=== PATIENT | male | born 1930 | race Caucasian/White ===

== ENCOUNTER 2016-06-29 08:19 | Emergency (ER) | payer MEDICARE, OTHER ==
[~2016-06-29] VITALS: Ht 167.6 cm; Wt 80.0 kg
[~2016-06-29 08:19] MED LIST: ASPI325T32 PO; ATOR40TA68 PO; CARV12.579 PO; CLOP75TA27 PO; ERGO500037 PO; ISOS30TA PO; MECL-77 PO; OMEP20CA16 PO; TAMS0.4C2 PO; VALS40TA2 PO
[2016-06-29 08:29] VITALS: Ht 167.6 cm; Wt 80.0 kg
[2016-06-29] MEDS ORDERED: ASPI-664 PO (09:23)
[2016-06-29] MEDS ORDERED: VALS160T20 PO (09:24)
[2016-06-29] MEDS ORDERED: BENA10TA48 PO (09:25)
[2016-06-29] MEDS ORDERED: AMOX1TAB10 PO (09:26)
[2016-06-29] MEDS ORDERED: ASPIRIN 325 MG TAB PO STA (09:43)
[2016-06-29] MEDS ORDERED: LIDOCAINE/MYLANTA 40 ML BTL PO ONE (10:00)
--- NOTE | 2016-06-29 10:16 | RADRPT ---
PROCEDURE: XR Chest. CLINICAL INDICATION: Chest pain. TECHNIQUE: Single frontal chest x-ray. COMPARISON: Exam dated 04/27/2013. FINDINGS: There are atherosclerotic changes of the aorta. The cardiomediastinal silhouette is within normal l imits. The lungs are clear without focal consolidation, effusion, or pneumothorax. There are no ac carroll osseous abnormalities. IMPRESSION: 1. No acute cardiopulmonary abnormality. 2. Vascular calcifications consistent with atherosclerosis. RPTAT: GG .Rodger Last MD, Date Time Electronically viewed and signed by .Rodger Last MD, on 06/29/2016 10:16 .P/
[2016-06-29 10:34] LABS: INR 1.09; PROTIME 14.1 Sec (12.2-14.2); PT RATIO 1.1
[2016-06-29 10:35] LABS: BASOPHILS % 0.2 % (0.0-2.0); EOSINOPHILS % 0.3 % (0.0-7.0); HEMATOCRIT 44.9 % (42.0-52.0); HEMOGLOBIN 15.1 g/dl (14.0-18.0); LYMPHOCYTES # 1.4 10^3/ul (0.8-2.9); LYMPHOCYTES % 16.1 % (15.0-51.0); MEAN CORPUSCULAR HEMOGLOBIN 29.9 pg (29.0-33.0); MEAN CORPUSCULAR HGB CONC 33.6 g/dl (32.0-37.0); MEAN CORPUSCULAR VOLUME 88.9 fl (82.0-101.0); MEAN PLATELET VOLUME 10.4 fl (7.4-10.4); MONOCYTES % 11.3 % (0.0-11.0); NEUTROPHIL # 6.1 10^3/ul (1.6-7.5); NEUTROPHILS % 72.1 % (39.0-77.0); PARTIAL THROMBOPLASTIN TIME 26.7 Sec (25.0-35.0); PLATELET COUNT 136 10^3/UL (140-440); RED BLOOD COUNT 5.05 10^6/ul (4.70-6.10); UNCORRECTED WBC 8.5 10^3/ul (4.8-10.8); WHITE BLOOD COUNT 8.5 10^3/ul (4.8-10.8)
[2016-06-29 10:37] LABS: CHLORIDE 105 mmol/L (97-110); POTASSIUM 4.4 mmol/L (3.5-5.1); SODIUM 145 mmol/L (135-144)
[2016-06-29 10:40] LABS: ANION GAP 17 (8-16); BLOOD UREA NITROGEN 24 mg/dl (7-20); CARBON DIOXIDE 27 mmol/L (21-31); CREATININE 0.88 mg/dl (0.61-1.24); GLUCOSE 114 mg/dl (70-220)
[2016-06-29 10:41] LABS: CALCIUM 9.4 mg/dl (8.4-10.2)
[2016-06-29 10:42] LABS: CONDITION 1
[2016-06-29 10:48] LABS: B-TYPE NATRIURETIC PEPTIDE 444 PG/ML (0-450)
[2016-06-29 11:00] LABS: TROPONIN-I < 0.012 ng/ml (0.00-0.12)
[2016-06-29] MEDS ORDERED: RANI150T9 PO (12:16)
--- NOTE | 2016-06-29 12:25 | ERD ---
ER Documentation Chief Complaint Date/Time DATE: 06/29/16 TIME: 12:17 Chief Complaint BROUGHT IN VIA EMS WITH FLU LIKE SYMPTOMS FOR 1 DAY HPI This 86-year-old male presents emergency room for acid reflux. He states that last night he took a pill that his doctor gave her cough which turns out to be Augmentin. He had taken this on an empty stomach after which she had severe acid reflux described as a burning chest pain and vomited one time. He has had consistent acid reflux. Still has mild acid reflux pain in his substernal area. Denies shortness of breath. Denies lightheadedness.. He had no fevers and chills ROS All systems reviewed and are negative except as per history of present illness. Medications Home Meds Active Scripts Ranitidine Hcl* (Zantac*) 150 Mg Tablet, 150 MG PO BID Y for EPIGASTRIC PAIN, # 30 TAB Prov:MAISHA JACK 06/29/16 Reported Medications Amoxicillin/Potassium Clav (Amox-Clav 875-125 mg Tablet) 875-125 mg Tab, 1 TAB PO BID, #20 TAB 06/29/16 Benazepril Hcl* (Benazepril Hcl*) 10 Mg Tablet, 10 MG PO DAILY, #30 TAB 06/29/16 Valsartan* (Diovan*) 160 Mg Tablet, 160 MG PO DAILY, TAB 06/29/16 Aspirin (Low Dose Aspirin) 81 Mg Tablet.dr, 81 MG PO DAILY, #30 TAB 06/29/16 Omeprazole* (Omeprazole*) 20 Mg Capsule.dr, 20 MG PO BID 04/20/13 Ergocalciferol (Vitamin D2) (VITAMIN D2) 50,000 Unit Capsule, 96229 UNIT PO WEEKLY 04/20/13 Atorvastatin* (Atorvastatin*) 40 Mg Tablet, 40 MG PO daily 04/20/13 Carvedilol* (Carvedilol*) 12.5 Mg Tablet, 12.5 MG PO bid 04/20/13 Tamsulosin Hcl* (Tamsulosin Hcl*) 0.4 Mg Cap.er.24h, 0.4 MG PO bid 04/20/13 Meclizine Hcl* (Meclizine Hcl*) 25 Mg Tablet, 25 MG PO bid 04/20/13 Discontinued Reported Medications Valsartan* (Diovan*) 40 Mg Tablet, 160 MG PO DAILY 04/20/13 Isosorbide Mononitrate* (Imdur*) 30 Mg Tab.sr.24h, 30 MG PO daily 04/20/13 Clopidogrel Bisulfate (Clopidogrel) 75 Mg Tablet, 75 MG PO daily 04/20/13 Aspirin (Aspirin) 325 Mg Tablet.dr, 325 MG PO daily 04/20/13 Allergies Allergies: Coded Allergies: No Known Allergies (Verified Allergy, 01/27/12) PMhx/Soc History of Surgery: Yes (cardiac cath) Anesthesia Reaction: No Hx Neurological Disorder: No Hx Respiratory Disorders: No Hx Cardiac Disorders: Yes (HTN, DYSLIPIDEMIA, PRIOR CHF) Hx Psychiatric Problems: No Hx Miscellaneous Medical Probl: Yes (CAD,PCI,ischemic cardiomyopathy,htn, dyslipidemia,BPH) Hx Alcohol Use: Yes (SOCIAL OCCASIONS) Hx Substance Use: No Hx Tobacco Use: No Smoking Status: Never smoker Physical Exam Vitals Vital Signs Date Time Temp Pulse Resp B/P Pulse Ox O2 Delivery O2 Flow Rate FiO2 06/29/16 10:29 98.0 78 16 153/78 100 06/29/16 08:29 98.0 66 16 153/78 100 Physical Exam Const: [] No distress Head: Atraumatic Eyes: Normal Conjunctiva ENT: Normal External Ears, Nose and Mouth. Neck: Full range of motion..~ No meningismus. Resp: Clear to auscultation bilaterally Cardio: Regular rate and rhythm, no murmurs Abd: Soft, very mild epigastric tenderness without guarding or rebound, non distended. Normal bowel sounds Skin: No petechiae or rashes Back: No midline or flank tenderness Ext: No cyanosis, or edema Neur: Awake and alert oriented 3, no focal deficits Psych: Normal Mood and Affect Result Diagram: 06/29/16 1000 06/29/16 1000 Results 24 hrs Laboratory Tests Test 06/29/16 10:00 Activated Partial Thromboplast Time 26.7Sec Anion Gap 17 B-Type Natriuretic Peptide 444PG/ML Basophils # 0.010^3/ul Basophils % 0.2% Blood Urea Nitrogen 24mg/dl Calcium Level 9.4mg/dl Carbon Dioxide Level 27mmol/L Chloride Level 105mmol/L Creatinine 0.88mg/dl Eosinophils # 0.010^3/ul Eosinophils % 0.3% Glucose Level 114mg/dl Hematocrit 44.9% Hemoglobin 15.1g/dl INR International Normalized Ratio 1.09 Lymphocytes # 1.410^3/ul Lymphocytes % 16.1% Mean Corpuscular Hemoglobin 29.9pg Mean Corpuscular Hemoglobin Concent 33.6g/dl Mean Corpuscular Volume 88.9fl Mean Platelet Volume 10.4fl Monocytes # 1.010^3/ul Monocytes % 11.3% Neutrophils # 6.110^3/ul Neutrophils % 72.1% Nucleated Red Blood Cells # 0.010^3/ul Nucleated Red Blood Cells % 0.0/100WBC Platelet Count 01772^3/UL Potassium Level 4.4mmol/L Prothrombin Time 14.1Sec Prothrombin Time Ratio 1.1 Red Blood Count 5.0510^6/ul Red Cell Distribution Width 13.0% Sodium Level 145mmol/L Troponin I < 0.012ng/ml White Blood Count 8.510^3/ul Current Medications Medications (Trade) Dose Ordered Sig/Maida Route PRN Reason Start Time Stop Time Status Last Admin Dose Admin Aspirin (Aspirin) 325 mg ONCE STAT PO 06/29/16 09:43 06/29/16 09:45 DC 06/29/16 10:33 Miscellaneous Medication (Gi Cocktail (2)) 40 ml ONCE ONCE PO 06/29/16 10:00 06/29/16 10:01 DC 06/29/16 10:33 Procedures/MDM 86-year-old male climbing a half acid reflux after taking pill on empty stomach. Because of sudden vomiting and 86 shoulder through his factors for acute coronary syndrome full cardiac workup was performed in the ER. Patient vital signs are stable and I doubt acute cardiac syndrome as he has a negative troponin without chest pain that began last night as well as an EKG with no acute ischemia. He was given an aspirin 325 mg as well as a GI cocktail. He states as soon as he had a GI cocktail his pain subsided completely. This is nonspecific. However the patient states they definitely does not want to stay in hospital wants to go home as soon as possible. I'm going to discharge him with strict return precautions. At given written and verbal instructions to obtain an echocardiogram to primary care doctor. Instructed the patient not taking pills and empty stomach and given return precautions for any concerning change such as chest pain nausea vomiting, shortness of breath or lightheadedness. Discharging with Zantac. EKG interpretation: Sinus bradycardia rate of 57, left axis deviation, diffuse Q waves with no ST or T-wave changes concerning for acute ischemia. monitoring analyst interpretation: Sinus bradycardia without arrhythmias Chest x-ray interpretation: I see no acute process, no widened mediastinum no infiltrate no particular edema, no pneumothorax. Departure Diagnosis: Primary Impression: GERD (gastroesophageal reflux disease) Additional Impressions: Chest pain Vomiting Condition: Stable Patient Instructions: Chest Pain, Uncertain Cause, Gerd (Adult), Vomiting (6Y- Adult) Additional Instructions: Call your primary care doctor TODAY For an appointment during the next 2-3 days. Request a referral for an ECHOCARDIOGRAMSee the doctor sooner or return here if your condition worsens before your appointment time. MAISHA JACK DO Jun 29, 2016 12:24
[2016-06-29 12:29] VITALS: BP 143/72; PULSE 80; RESP 16; TEMP 98
== END 2016-06-29 12:46 | disposition home or self-care (01) ==
LOC: E/R 08:19
DX: K21.9 Gastro-esophageal reflux disease without esophagitis (principal); R11.10 Vomiting, unspecified; I10 Essential (primary) hypertension; I25.10 Atherosclerotic heart disease of native coronary artery without angina pectoris; Z79.82 Long term (current) use of aspirin
CPT/HCPCS: 36415; 71010; 80048; 83880; 84484; 85025; 85610; 85730; 87400; 93005

== ENCOUNTER 2017-06-07 19:30 | Emergency (ER) | payer MEDICARE, OTHER ==
[~2017-06-07] VITALS: Ht 170.2 cm; Wt 79.9 kg
[~2017-06-07 19:30] MED LIST changes: +AMOX1TAB10 PO; +ASPI-664 PO; -ASPI325T32 PO; +BENA10TA48 PO; -CLOP75TA27 PO; -ISOS30TA PO; +RANI150T9 PO; +VALS160T20 PO; -VALS40TA2 PO
[2017-06-07 19:42] VITALS: Ht 170.2 cm; Wt 79.9 kg
--- NOTE | 2017-06-07 23:52 | ERD ---
ER Documentation Chief Complaint Chief Complaint left leg skin itch HPI The patient is a 87-year-old male, presenting to the ER because of bilateral leg pruritus for 2 weeks. He has been scratching on them. He denies fever, neck pain, chest pain, dyspnea, abdominal pain, vomiting or dysuria, diarrhea. He does not smoke nor drink Medical history: Hypertension, dyslipidemia, BPH, history of CHF, CAD, ischemic cardiomyopathy, COPD, varicosis vein Past surgical history: Stent PCI ROS All systems reviewed and are negative except as per history of present illness. Medications Home Meds Active Scripts Triamcinolone Acetonide* (Kenalog*) 0.1%-15GM Cr, 1 APPLIC TOP BID for 7 Days, # 1 TUB Prov:VEGA CARY MD 06/08/17 Diphenhydramine Hcl* (Benadryl*) 50 Mg Cap, 50 MG PO Q6H Y for ITCHING/RASH, # 30 CAP Prov:VEGA CARY MD 06/07/17 Ranitidine Hcl* (Zantac*) 150 Mg Tablet, 150 MG PO BID Y for EPIGASTRIC PAIN, # 30 TAB Prov:MAISHA JACK DO 06/29/16 Reported Medications Amoxicillin/Potassium Clav (Amox-Clav 875-125 mg Tablet) 875-125 mg Tab, 1 TAB PO BID, #20 TAB 06/29/16 Benazepril Hcl* (Benazepril Hcl*) 10 Mg Tablet, 10 MG PO DAILY, #30 TAB 06/29/16 Valsartan* (Diovan*) 160 Mg Tablet, 160 MG PO DAILY, TAB 06/29/16 Aspirin (Low Dose Aspirin) 81 Mg Tablet.dr, 81 MG PO DAILY, #30 TAB 06/29/16 Omeprazole* (Omeprazole*) 20 Mg Capsule.dr, 20 MG PO BID 04/20/13 Ergocalciferol (Vitamin D2) (VITAMIN D2) 50,000 Unit Capsule, 16699 UNIT PO WEEKLY 04/20/13 Atorvastatin* (Atorvastatin*) 40 Mg Tablet, 40 MG PO daily 04/20/13 Carvedilol* (Carvedilol*) 12.5 Mg Tablet, 12.5 MG PO bid 04/20/13 Tamsulosin Hcl* (Tamsulosin Hcl*) 0.4 Mg Cap.er.24h, 0.4 MG PO bid 04/20/13 Meclizine Hcl* (Meclizine Hcl*) 25 Mg Tablet, 25 MG PO bid 04/20/13 Allergies Allergies: Coded Allergies: No Known Allergies (Verified Allergy, 01/27/12) PMhx/Soc History of Surgery: Yes (cardiac cath) Anesthesia Reaction: No Hx Neurological Disorder: No Hx Respiratory Disorders: No Hx Cardiac Disorders: Yes (HTN, DYSLIPIDEMIA, PRIOR CHF) Hx Psychiatric Problems: No Hx Miscellaneous Medical Probl: Yes (CAD,PCI,ischemic cardiomyopathy,htn, dyslipidemia,BPH) Hx Alcohol Use: Yes (SOCIAL OCCASIONS) Hx Substance Use: No Hx Tobacco Use: No Physical Exam Vitals Vital Signs Date Time Temp Pulse Resp B/P Pulse Ox O2 Delivery O2 Flow Rate FiO2 06/08/17 00:39 98.1 85 16 158/77 97 Room Air 06/07/17 19:42 97.6 48 20 193/83 96 Physical Exam Const: No acute distress. Head: Atraumatic. Eyes: Normal Conjunctiva. ENT: Normal External Ears, Nose and Mouth. Neck: Full range of motion. No meningismus. Resp: Clear to auscultation bilaterally. Cardio: Regular rate and rhythm. Abd: Soft, non distended, normal bowel sounds, non tender. Skin: No petechiae or rashes. Back: No midline or flank tenderness. Ext: Bilateral leg with minimal erythematous, maculopapular rash, no petechia, no vesicle/pustules Neur: Awake and alert. No focal deficit Psych: Normal Mood and Affect. Procedures/MDM MEDICAL MAKING DECISION: The patient is a 87-year-old male, presenting with acute nonspecific dermatitis of lower extremity. He is stable for outpatient follow-up The differential diagnoses considered include but are not limited to cellulitis , DVT, contact dermatitis, allergic dermatitis Departure Diagnosis: Primary Impression: Dermatitis Condition: Good Comments He was discharged with Benadryl and Kenalog cream I discussed the findings with the patient. I advised the patient to follow-up with the primary physician in about 1-2 days, sooner if needed and return if any concern. Disclaimer: Inadvertent spelling and grammatical errors are likely due to EHR/ dictation software use and do not reflect on the overall quality of patient care. Also, please note that the electronic time recorded on this note does not necessarily reflect the actual time of the patient encounter. VEGA CARY MD Jun 07, 2017 23:52
[2017-06-07] MEDS ORDERED: BEN50 PO (23:59)
[2017-06-08] MEDS ORDERED: TRIA15CR55 TOP (00:01)
[2017-06-08 00:39] VITALS: BP 158/77; PULSE 85; RESP 16; TEMP 98.1
== END 2017-06-08 00:41 | disposition home or self-care (01) ==
LOC: E/R 19:30
DX: L30.9 Dermatitis, unspecified (principal); I10 Essential (primary) hypertension; I50.9 Heart failure, unspecified; I25.10 Atherosclerotic heart disease of native coronary artery without angina pectoris; J44.9 Chronic obstructive pulmonary disease, unspecified; Z98.61 Coronary angioplasty status; Z79.82 Long term (current) use of aspirin
CPT/HCPCS: 99283